=== PATIENT | male | born 1960 | race Caucasian/White ===

== ENCOUNTER 2019-10-12 15:18 | Emergency (ER) | payer SELFPAY ==
[~2019-10-12] VITALS: Ht 182.8 cm; Wt 94.2 kg
--- NOTE | 2019-10-12 15:51 | ED Lower Extremity ---
General Chief Complaint: Lower Extremity Stated Complaint: LT LEG PAIN - TREE FELL ON IT Source: patient History of Present Illness Date Seen by Provider: Oct 12, 2019 Time Seen by Provider: 16:00 Initial Comments Patient is a 59-year-old male who comes to the emergency department with a left lower extremity injury. He was cutting a tree down. He describes it to be a large tree which fell and then rolled over the lower part of his leg. He comes to the ER complaining of severe pain in the tibial area on the left. He also has minor abrasions. His last shot is up-to-date. He did not sustain any other injuries and the treated roller his pelvis or torso or abdomen. Allergies and Home Medications Allergies Coded Allergies: No Known Drug Allergies (Unverified , 10/12/19) Patient Home Medication List Home Medication List Reviewed: Yes Review of Systems Constitutional: no symptoms reported EENTM: no symptoms reported Respiratory: no symptoms reported Cardiovascular: no symptoms reported Gastrointestinal: no symptoms reported Genitourinary: no symptoms reported Musculoskeletal: see HPI Skin: see HPI Psychiatric/Neurological: No Symptoms Reported All Other Systems Reviewed Negative Unless Noted: Yes Physical Exam Vital Signs Vital Signs - First Documented 10/12/19 15:30 Temp 36.5 Pulse 80 Resp 18 B/P (MAP) 129/88 (102) Pulse Ox 94 O2 Delivery Room Air Capillary Refill : Height, Weight, BMI Height: '" Weight: lbs. oz. kg; BMI Method: General Appearance: WD/WN, mild distress HEENT: PERRL/EOMI, normal ENT inspection Neck: non-tender, full range of motion Cardiovascular: regular rate, rhythm Respiratory: chest non-tender, lungs clear Gastrointestinal: normal bowel sounds, non tender, soft Back: normal inspection, other (soft tissue edema is present about the lower portion of the left leg. He does have dorsalis pedis and posterior tibial pulses that are easily palpable. There is abrasion along the length of the tibia.) Progress/Results/Core Measures Results/Orders Lab Results Laboratory Tests Test 10/12/19 15:45 Range/Units White Blood Count 6.1 4.3-11.0 10^3/uL Red Blood Count 4.43 4.35-5.85 10^6/uL Hemoglobin 14.6 13.3-17.7 G/DL Hematocrit 42 40-54 % Mean Corpuscular Volume 96 80-99 FL Mean Corpuscular Hemoglobin 33 25-34 PG Mean Corpuscular Hemoglobin Concent 34 32-36 G/DL Red Cell Distribution Width 12.5 10.0-14.5 % Platelet Count 283 130-400 10^3/uL Mean Platelet Volume 9.9 7.4-10.4 FL Neutrophils (%) (Auto) 63 42-75 % Lymphocytes (%) (Auto) 25 12-44 % Monocytes (%) (Auto) 10 0-12 % Eosinophils (%) (Auto) 2 0-10 % Basophils (%) (Auto) 1 0-10 % Neutrophils # (Auto) 3.8 1.8-7.8 X 10^3 Lymphocytes # (Auto) 1.5 1.0-4.0 X 10^3 Monocytes # (Auto) 0.6 0.0-1.0 X 10^3 Eosinophils # (Auto) 0.1 0.0-0.3 10^3/uL Basophils # (Auto) 0.0 0.0-0.1 10^3/uL Sodium Level 139 135-145 MMOL/L Potassium Level 4.2 3.6-5.0 MMOL/L Chloride Level 102 98-107 MMOL/L Carbon Dioxide Level 25 21-32 MMOL/L Anion Gap 12 5-14 MMOL/L Blood Urea Nitrogen 14 7-18 MG/DL Creatinine 0.78 0.60-1.30 MG/DL Estimat Glomerular Filtration Rate > 60 BUN/Creatinine Ratio 18 Glucose Level 116 H 70-105 MG/DL Calcium Level 9.9 8.5-10.1 MG/DL My Orders Orders - ABHISHEK DAO DO Fentanyl Injection (Sublimaze Injection (10/12/19 16:00) Tibia Fibula 2 View Left (10/12/19 16:17) Foot 3 View Left (10/12/19 16:17) Hydromorphone Injection (Dilaudid Inject (10/12/19 16:30) Ns Iv 1000 Ml (Sodium Chloride 0.9%) (10/12/19 16:30) Cbc With Automated Diff (10/12/19 16:17) Basic Metabolic Panel (10/12/19 16:17) Hydromorphone Injection (Dilaudid Inject (10/12/19 17:45) Medications Given in ED Current Medications Medications Dose Ordered Sig/Melecio Route Start Time Stop Time Status Last Admin Dose Admin Fentanyl Citrate 75 mcg ONCE ONCE IVP 10/12/19 16:00 10/12/19 16:01 DC 10/12/19 15:58 75 MCG Hydromorphone HCl 1 mg ONCE ONCE IVP 10/12/19 16:30 10/12/19 16:31 DC 10/12/19 16:39 1 MG Vital Signs/I&O 10/12/19 15:30 Temp 36.5 Pulse 80 Resp 18 B/P (MAP) 129/88 (102) Pulse Ox 94 O2 Delivery Room Air Progress Progress Note : Time: 18:17 Progress Note Patient is a 5-year-old male who comes to the ER with complaints listed above. On x-ray, he has a nondisplaced tibial fracture that is along the distal aspect of the tibia not involving the ankle joint. In the ER, his pain was significant. He was given a dose of fentanyl followed by 2 doses of Dilaudid after an IV was placed. Basic labs were also checked. Of note, the compartments of the patient's lower extremity are soft and not enlarged compared to the contralateral side. I did consult with orthopedics regarding this patient as I initially considered admission for observation to ensure no develop of compartment syndrome. After some discussion, we agreed to place the patient in a long-leg splint and he will contact orthopedist tomorrow for close follow-up. Long-leg splint was placed and reevaluated. Capillary refill distal to the splint was less than 2 seconds and sensation light touch was intact. An appropriate splint was placed. Patient was discharged home. He was given Percocet for pain and provided the orthopedist number. Strict return precautions were discussed and he will come back to the ER if his symptoms severely worsen overnight. Departure Impression Primary Impression: Fracture of tibia Disposition: HOME, SELF-CARE Condition: Improved Departure-Patient Inst. Referrals: NONA BARRON MD (PCP/Family) Primary Care Physician ABHISHEK DAO DO Oct 12, 2019 15:51
[2019-10-12] MEDS ORDERED: fentaNYL INJECTION 100 MCG/2 ML AMP IVP ONE (16:00)
[2019-10-12] MEDS ORDERED: NS IV 1000 ML 1,000 ML IV SCH (16:30)
[2019-10-12] MEDS ORDERED: HYDROmorphone 2 MG/ML VIAL (DILAUDID) IVP ONE (16:30)
[2019-10-12 16:44] LABS: HEMOGLOBIN 14.6 G/DL (13.3-17.7); MEAN CORPUSCULAR HEMOGLOBIN 33 PG (25-34); WHITE BLOOD COUNT 6.1 10^3/uL (4.3-11.0)
[2019-10-12 16:45] LABS: BASOPHILS % (AUTO) 1 % (0-10); EOSINOPHILS # (AUTO) 0.1 10^3/uL (0.0-0.3); EOSINOPHILS % (AUTO) 2 % (0-10); HEMATOCRIT 42 % (40-54); LYMPHOCYTES # (AUTO) 1.5 X 10^3 (1.0-4.0); LYMPHOCYTES % (AUTO) 25 % (12-44); MEAN CORPUSCULAR HGB CONC 34 G/DL (32-36); MEAN CORPUSCULAR VOLUME 96 FL (80-99); MEAN PLATELET VOLUME 9.9 FL (7.4-10.4); MONOCYTES # (AUTO) 0.6 X 10^3 (0.0-1.0); MONOCYTES % (AUTO) 10 % (0-12); NEUTROPHILS # (AUTO) 3.8 X 10^3 (1.8-7.8); NEUTROPHILS % (AUTO) 63 % (42-75); PLATELET COUNT 283 10^3/uL (130-400); RED CELL DISTRIBUTION WIDTH 12.5 % (10.0-14.5)
--- NOTE | 2019-10-12 17:03 | Diagnostic Imaging Report ---
INDICATION: Fall. Left foot pain. FINDINGS: Three views. There is advanced arthritic disease of the first MP joint with marked hypertrophic bony change. The remaining MP joints appear normal. The interphalangeal joints are normal. No fractures are present. There are large osteophytes anteriorly along the first MP joint in the soft tissues. 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 No acute abnormalities. Dictated by: Dictated on workstation # [id number]
--- NOTE | 2019-10-12 17:04 | Diagnostic Imaging Report ---
INDICATION: Injury to the left leg. EXAMINATION: AP and lateral views of the left tibia and fibula were performed at 4:49 p.m. FINDINGS: There is an acute nondisplaced fracture of the distal tibial shaft several centimeters above the ankle joint level. The fibula is intact. There is no unexpected foreign body. IMPRESSION: Acute nondisplaced distal tibial shaft fracture. Dictated by: Dictated on workstation # [id number]
[2019-10-12 17:15] LABS: CHLORIDE 102 MMOL/L (98-107); POTASSIUM 4.2 MMOL/L (3.6-5.0); SODIUM 139 MMOL/L (135-145)
[2019-10-12 17:18] LABS: BUN/CREATININE RATIO 18; CALCIUM 9.9 MG/DL (8.5-10.1); CARBON DIOXIDE 25 MMOL/L (21-32); CREATININE SERUM 0.78 MG/DL (0.60-1.30); GFR ESTIMATED > 60; GLUCOSE 116 MG/DL (70-105)
[2019-10-12] MEDS ORDERED: HYDROmorphone 2 MG/ML VIAL (DILAUDID) IV ONE (17:45)
[2019-10-12] MEDS ORDERED: OXYC1TAB16 PO (18:26)
[2019-10-12] MEDS ORDERED: IBUP-1780 PO (18:28)
[2019-10-12] MEDS ORDERED: oxyCODONE/APAP 5/325MG (PERCOCET 5) TABLET PO ONE (19:30)
[2019-10-12] MEDS ORDERED: RX-OXYCODONE/APAP 5-325 MG #4 TAB PK PO PRN (19:30)
[2019-10-12 19:33] VITALS: BP 125/68
== END 2019-10-12 19:33 | disposition home or self-care (01) ==
LOC: EDUNIT# 15:18 → ER FS 15:19
DX: S82.202A Unspecified fracture of shaft of left tibia, initial encounter for closed fracture (principal); W23.0XXA Caught, crushed, jammed, or pinched between moving objects, initial encounter
CPT/HCPCS: 29505; 36415; 73590; 73630; 80048; 85025; 96374; 96375; 96376

== ENCOUNTER → 2019-10-16 | Outpatient (CLI) | payer SELFPAY ==
[~2019-10-16] MED LIST: IBUP-1780 PO; OXYC1TAB16 PO
== END ==
LOC: ORTHO 09:54
PROVIDERS: ATTEND Orthopaedic Surgery
DX: S82.225A Nondisplaced transverse fracture of shaft of left tibia, initial encounter for closed fracture (principal); I10 Essential (primary) hypertension; Z90.49 Acquired absence of other specified parts of digestive tract; Z90.89 Acquired absence of other organs; Z80.9 Family history of malignant neoplasm, unspecified; Z98.890 Other specified postprocedural states

== ENCOUNTER → 2019-10-28 | Outpatient (CLI) | payer SELFPAY ==
--- NOTE | 2019-10-28 15:16 | Diagnostic Imaging Report ---
EXAMINATION: Left tibia and fibula at 02:16 p.m. INDICATION: Tibial fracture. FINDINGS: AP and lateral views were obtained. The previous exam of 10/12/2019 noted an acute nondisplaced complex fracture extending obliquely through the distal third of the tibia. There are fractures again evident on this study and essentially no different. The fracture lines are still visible. No other fracture or acute bony abnormality is appreciated. There is only mild degenerative disease of the knee and ankle joints. The soft tissues are unremarkable. There is now a fiberglass cast in place. IMPRESSION: 1. The nondisplaced fracture of the distal tibia seen previously appears stable. No new abnormality has developed. 2. There is now fiberglass cast in place. Dictated by: Dictated on workstation # [id number]
== END ==
LOC: ORTHO 14:01
PROVIDERS: ATTEND Orthopaedic Surgery
DX: S82.225A Nondisplaced transverse fracture of shaft of left tibia, initial encounter for closed fracture (principal)
CPT/HCPCS: 29405; 73590

== ENCOUNTER → 2019-11-12 | Outpatient (CLI) | payer SELFPAY ==
--- NOTE | 2019-11-12 09:23 | Diagnostic Imaging Report ---
INDICATION: Tibial fracture. Time of exam 9:12 AM Comparison is made with prior radiograph from 10/28/2019. Overlying cast has been removed. Obliquely oriented fracture of the distal tibia is again noted. There is some callus formation at the fracture site consistent with healing. Fracture line does remain visible. Alignment is anatomic. The fibula appears to be intact. Alignment at the knee and ankle is normal. IMPRESSION: Healing distal tibial fracture. The fracture line remains visible. Alignment is anatomic. Dictated by: Dictated on workstation # [id number]
== END ==
LOC: ORTHO 08:51
PROVIDERS: ATTEND Orthopaedic Surgery
DX: S82.225D Nondisplaced transverse fracture of shaft of left tibia, subsequent encounter for closed fracture with routine healing (principal)
CPT/HCPCS: 73590